=== PATIENT | male | born 1945 | race Caucasian/White ===

== ENCOUNTER 2019-07-01 06:05 | Emergency (ER) | payer MEDICARE ==
[2019-07-01 07:18] LABS: #Basophils 0.1 thou/uL (0.0-0.2); #Eosinphils 0.1 thou/uL (0.0-0.7); #Monocytes 0.6 thou/uL (0.11-0.59); #Neutrophils 8.1 thou/uL (1.40-6.50); %Basophils 0.6 % (0.0-1.0); %Eosinophils 1.1 % (0.0-10.0); %Lymphocytes 10.3 % (21.0-51.0); %Monocytes 5.7 % (0.0-10.0); %Neutrophils 82.3 % (42.0-75.0); Hemoglobin 17.8 g/dL (14.0-18.0); Mean Corpuscular HGB CONC 33.1 g/dL (32.0-36.0); Mean Corpuscular Hemoglobin 31.9 pg (27.0-31.0); Mean Corpuscular Volume 96.6 fL (78.0-98.0); Mean Platelet Volume 10.5 fL (7.4-10.4); Platelet Count 144 thou/uL (130-400); Red Blood Cell (RBC) Count 5.58 mill/uL (4.70-6.10); White Blood Cell (WBC) Count 9.9 thou/uL (4.8-10.8)
[2019-07-01 07:20] LABS: INR-International Normal Ratio 0.9; Prothrombin Time 12.1 SEC (12.0-14.7)
[2019-07-01] MEDS ORDERED: diphenhydrAMINE 50 MG/ML VIAL ONE (07:22)
[2019-07-01] MEDS ORDERED: Ketorolac Tromethamine 30 MG/ML VIAL ONE (07:22)
[2019-07-01] MEDS ORDERED: Metoclopramide HCl 10 MG/2 ML VIAL ONE (07:22)
[2019-07-01] MEDS ORDERED: Morphine 4 MG/ML VIAL ONE (07:22)
[2019-07-01 07:29] LABS: ALT (SGPT) 13 U/L (8-55); AST (SGOT) 13 U/L (5-34); Albumin 4.2 g/dL (3.4-4.8); Alkaline Phosphatase 77 U/L (40-110); Anion Gap 15 mmol/L (10-20); BUN (Urea Nitrogen) 17 mg/dL (8.4-25.7); Bilirubin, Total 0.3 mg/dL (0.2-1.2); Calc. Creatinine Clearance 0 mL/min (70-130); Carbon Dioxide 26 mmol/L (23-31); Chloride 104 mmol/L (98-107); Estimated GFR-MDRD 89; Globulin 2.5 g/dL (2.4-3.5); Glucose 108 mg/dL (83-110); Potassium 4.1 mmol/L (3.5-5.1); Protein, Total 6.7 g/dL (5.8-8.1); Sodium 141 mmol/L (136-145)
--- NOTE | 2019-07-01 07:40 | CT ---
CT BRAIN WITHOUT CONTRAST: Date: 07/01/[address] shows normal sized ventricles with no shift. No intracranial bleeding or extra-axial hematoma seen. No evidence of mass, edema, or stroke. The visible paranasal sinuses and mastoid air cells are clear. IMPRESSION: No acute intracranial findings. Preliminary report called to [facility] in the ER at 0723 hours on 07/01/2019. CODE CR. POS: HOME
--- NOTE | 2019-07-01 07:43 | CT ---
CT FACIAL BONES: Date: 07/01/[address] of the facial bones was performed for evaluation of pain. The paranasal sinuses are clear. No acute fractures noted. There is deviation of the anterior nasal s eptum to the right, which I presume to be old. The orbital rims, zygomatic arches, and mandible all a ppear intact. The patient is edentulous. No signs of abscess seen in the region. 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 The retroorbital areas appear normal. IMPRESSION: 1. No acute findings in the face to explain pain. 2. Deviated nasal septum, presumably old. 3. 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 Report called to ER at 0728 on 07/01/2019. CODE CR. POS: HOME
== END 2019-07-01 08:30 | disposition home or self-care (01) ==
LOC: BURERS 06:05
DX: R51 Headache (principal); F17.210 Nicotine dependence, cigarettes, uncomplicated; I25.10 Atherosclerotic heart disease of native coronary artery without angina pectoris
CPT/HCPCS: 70450; 70486; 80053; 85025; 85610; 96374; 96375; J1200; J1885; J2270; J2765

== ENCOUNTER 2021-03-23 13:32 | Emergency (ER) | payer MEDICARE ==
[2021-03-23 14:45] LABS: #Basophils 0.1 thou/uL (0.0-0.2); #Eosinphils 0.1 thou/uL (0.0-0.7); #Lymphocytes 1.2 thou/uL (1.20-3.40); #Monocytes 0.5 thou/uL (0.11-0.59); #Neutrophils 4.2 thou/uL (1.40-6.50); %Basophils 1.3 % (0.0-1.0); %Eosinophils 1.2 % (0.0-10.0); %Lymphocytes 19.4 % (21.0-51.0); %Monocytes 7.8 % (0.0-10.0); %Neutrophils 70.2 % (42.0-75.0); Hemoglobin 16.3 g/dL (14.0-18.0); Mean Corpuscular HGB CONC 34.3 g/dL (32.0-36.0); Mean Corpuscular Hemoglobin 33.4 pg (27.0-31.0); Mean Corpuscular Volume 97.3 fL (78.0-98.0); Mean Platelet Volume 9.1 fL (7.4-10.4); Platelet Count 199 thou/uL (130-400); RBC Distribution Width 12.1 % (11.5-14.5); Red Blood Cell (RBC) Count 4.87 mill/uL (4.70-6.10)
[2021-03-23 15:04] LABS: ALT (SGPT) 15 U/L (8-55); AST (SGOT) 14 U/L (5-34); Albumin 3.5 g/dL (3.4-4.8); Alkaline Phosphatase 65 U/L (40-110); Anion Gap 15 mmol/L (10-20); BUN (Urea Nitrogen) 16 mg/dL (8.4-25.7); Bilirubin, Total 0.6 mg/dL (0.2-1.2); Calc. Creatinine Clearance 0 mL/min (70-130); Calcium 9.4 mg/dL (7.8-10.44); Carbon Dioxide 25 mmol/L (23-31); Chloride 101 mmol/L (98-107); Globulin 2.8 g/dL (2.4-3.5); Glucose 89 mg/dL (83-110); Lipase 39 U/L (8-78); Potassium 4.2 mmol/L (3.5-5.1); Protein, Total 6.3 g/dL (5.8-8.1); Sodium 137 mmol/L (136-145)
== END 2021-03-23 15:52 | disposition home or self-care (01) ==
LOC: BURERS 13:32
DX: F32.9 Major depressive disorder, single episode, unspecified (principal); R63.4 Abnormal weight loss; F17.210 Nicotine dependence, cigarettes, uncomplicated
CPT/HCPCS: 36415; 71046; 80053; 83605; 83690; 83880; 84443; 84484; 85025